=== PATIENT | male | born 2000 | race Caucasian/White ===

== ENCOUNTER 2022-12-16 08:59 | Emergency (ER) | payer OTHER ==
[~2022-12-16] VITALS: Ht 167 cm; Wt 114.0 kg
[~2022-12-16 08:59] MED LIST: AMOX500C2 PO; CETI1SOL11; IBUP-1780 PO
[2022-12-16 09:10] VITALS: BP 106/74
[2022-12-16] MEDS ORDERED: CEPHALEXIN 250 MG (KEFLEX) CAP PO ONE (09:15)
[2022-12-16] MEDS ORDERED: oxyCODONE/APAP 5/325MG (PERCOCET 5) TABLET PO ONE (09:15)
--- NOTE | 2022-12-16 09:16 | ED Upper Extremity ---
General Chief Complaint: Upper Extremity Stated Complaint: WC LT 4TH FINGER CRUSH INJ Source: patient Exam Limitations: no limitations History of Present Illness Date Seen by Provider: Dec 16, 2022 Time Seen by Provider: 09:00 Initial Comments Patient is a left-handed male who presents with a work related renu injury to left ring finger with fingernail involvement. The injury occurred 2 hours prior to ED arrival. Patient was evaluated at [facility] prior to ED arrival. X- ray was obtained. Patient's tetanus is up-to-date. Onset: this morning Severity: mild Pain/Injury Location: left 4th finger Method of Injury: other Modifying Factors: Improves With Other Allergies and Home Medications Allergies Coded Allergies: No Known Drug Allergies (Unverified Allergy, Mild, 09/06/09) Patient Home Medication List Home Medication List Reviewed: Yes Amoxicillin (Amoxicillin) 500 Mg Capsule, 500 MG PO TID Prescribed by: ALFREDO SHELBY on 08/19/151838 Ibuprofen (Ibuprofen) 800 Mg Tablet, 800 MG PO Q8H PRN for PAIN Prescribed by: ALFREDO SHELBY on 08/19/151838 Review of Systems Constitutional: see HPI Musculoskeletal: see HPI Skin: see HPI Past Vzjunek-Lheamj-Qzozof Hx Patient Social History Tobacco Use?: No Substance use?: No Alcohol Use?: No Past Medical History Ear Surgery Family Medical History No Pertinent Family Hx Physical Exam Vital Signs Vital Signs - First Documented 12/16/22 09:10 Pulse 91 Resp 18 B/P (MAP) 106/74 (85) Pulse Ox 98 O2 Delivery Room Air Capillary Refill : Height, Weight, BMI Height: 5'" Weight: 184lbs. oz. 83.825056ws; BMI Method: General Appearance: no apparent distress Hand: laceration (Renu injury with nailbed involvement to left index finger, no gross deformity, skin defect. Bleeding controlled. Wound is grossly clean.) Neurologic/Psychiatric: alert, normal mood/affect, oriented x 3 Progress/Results/Core Measures Results/Orders My Orders Orders - LAITH CHAPPELL DO Oxycodone/Apap 5/325mg Tablet (Percocet (12/16/22 09:15) Cephalexin Capsule (Keflex Capsule) (12/16/22 09:15) Finger(S) (12/16/22 09:16) Medications Given in ED Current Medications Medications Dose Ordered Sig/Clem Route Start Time Stop Time Status Last Admin Dose Admin Cephalexin HCl 500 mg ONCE ONCE PO 12/16/22 09:15 12/16/22 09:16 DC 12/16/22 09:26 500 MG Oxycodone/ Acetaminophen 1 tab ONCE ONCE PO 12/16/22 09:15 12/16/22 09:16 DC 12/16/22 09:26 1 TAB Vital Signs/I&O 12/16/22 09:10 Pulse 91 Resp 18 B/P (MAP) 106/74 (85) Pulse Ox 98 O2 Delivery Room Air Departure Communication (Admissions) X-ray left fingers: Distal tuft fracture involving left ring finger. No foreign body present Distal tuft fracture with nailbed involvement. Soft tissue wound edges grossly aligned. No exposed bone. No deformity. Patient's wound cleansed, antibiotic, applied, wound bandaged and pain addressed. Recommendations are for follow-up with work comp doctor and/or local orthopedic physician. Case discussed in detail with Dr. Padilla who is available to see the patient in follow-up. Return precautions reviewed. Patient verbalizes understanding and agreement with discharge paperwork prior to departure. Impression Primary Impression: Closed fracture of tuft of distal phalanx of left ring finger Disposition: HOME, SELF-CARE Condition: Stable Departure-Patient Inst. Decision time for Depature: 10:39 Referrals: NO,LOCAL PHYSICIAN (PCP) Primary Care Physician YOUSIF PADILLA MD Patient Instructions: Finger Fracture ED Add. Discharge Instructions: You were evaluated in the emergency department for left finger injury. Please keep finger bandage, dry and avoid left hand use. Take ibuprofen for pain and hydrocodone as needed for additional relief. Complete full course of antibiotics. Follow-up with your work comp doctor for reevaluation or further recommendations. You may also follow-up with Dr. Randy gilbert if no workplace recommendations are available. Return to the ED if new or concerning symptoms. All discharge instructions reviewed with patient and/or family. Voiced underst anding. Scripts Cephalexin (Cephalexin) 500 Mg Tablet 500 MG PO TID, #21 TAB Prov: LAITH CHAPPELL DO 12/16/22 Hydrocodone/Acetaminophen (Hydrocodone-Acetamin 5-325 mg) 5 Mg-325 Mg Tablet 1 TAB PO Q4H PRN for PAIN-MODERATE (5-7), #12 TAB Prov: LAITH CHAPPELL DO 12/16/22 LAITH CHAPPELL DO Dec 16, 2022 09:16
--- NOTE | 2022-12-16 09:37 | Diagnostic Imaging Report ---
INDICATION: Crush injury left 4th finger Transverse fractures of the tuft of the distal phalanx of the 4th finger 3.5 mm of diastases. IMPRESSION: Fracture of the tip of the bony tuft of the distal phalanx of the left 4th finger. Dictated by: Dictated on workstation # [id number]
[2022-12-16] MEDS ORDERED: CEPH500T PO (10:42)
[2022-12-16] MEDS ORDERED: ACHD5005 PO (10:42)
== END 2022-12-16 11:05 | disposition home or self-care (01) ==
LOC: EDUNIT# 08:59 → ER FS 09:02
DX: S62.635A Displaced fracture of distal phalanx of left ring finger, initial encounter for closed fracture (principal); S61.311A Laceration without foreign body of left index finger with damage to nail, initial encounter; Z28.310 Unvaccinated for COVID-19; X58.XXXA Exposure to other specified factors, initial encounter
CPT/HCPCS: 12001; 73140

== ENCOUNTER → 2023-01-10 | Outpatient (CLI) | payer OTHER ==
[~2023-01-10] MED LIST changes: +ACHD5005 PO; +CEPH500T PO
--- NOTE | 2023-01-10 09:29 | Diagnostic Imaging Report ---
INDICATION: Left hand fracture AP, oblique, and lateral views of the left hand are obtained. There is a fracture of the distal tuft of the 4th distal phalanx of indeterminate age. There is about 3 mm of displacement of the distal tuft. There is no radiopaque foreign body. Remaining structures are intact. IMPRESSION: Fracture distal tuft of 4th distal phalanx as above. Dictated by: Dictated on workstation # [id number]
== END ==
LOC: RAD FS 08:33
PROVIDERS: ATTEND Nurse Practitioner
DX: S62.635A Displaced fracture of distal phalanx of left ring finger, initial encounter for closed fracture (principal); X58.XXXA Exposure to other specified factors, initial encounter
CPT/HCPCS: 73130